=== PATIENT | male | born 1960 | race Caucasian/White ===

== ENCOUNTER 2024-11-04 10:54 | Outpatient (CLI) | payer BC, SELFPAY | END 2024-11-04 10:55 | disposition home or self-care (01) | LOC: FRMREF 10:54 | PROVIDERS: Visit Provider Surgery | DX: L72.9 Follicular cyst of the skin and subcutaneous tissue, unspecified (principal); L08.9 Local infection of the skin and subcutaneous tissue, unspecified | CPT/HCPCS: 87070 ==